=== PATIENT | male | born 2000 | race Caucasian/White ===

== ENCOUNTER 2018-05-02 09:12 | Emergency (ER) | payer BC ==
[2018-05-02] MEDS: IBUPROFEN 800 MG TAB PO (09:37)
== END 2018-05-02 11:28 | disposition home or self-care (01) ==
LOC: FTE 09:12
DX: S59.902A Unspecified injury of left elbow, initial encounter (principal); V00.131A Fall from skateboard, initial encounter; Y92.9 Unspecified place or not applicable
CPT/HCPCS: 29105; 73080-LT; 99283-25